=== PATIENT | female | born 1955 | race Caucasian/White ===

== ENCOUNTER 2016-08-02 07:14 | Day surgery (SDC) | payer OTHER ==
[2016-08-02] VITALS (11 sets, daily range): BP systolic 114–132; BP diastolic 64–75; PULSE 67–88; RESP 8–17; O2SAT 91–97
[~2016-08-02] VITALS: Ht 160 cm; Wt 85.0 kg
[~2016-08-02 07:14] MED LIST: BACL20TA PO; ESTR0.5T PO; FLUO40CA PO; HYDR-656 PO; LORA10CA PO; LURA20TA PO; MONT10TA20 PO; MTH10T PO; OLAN5TAB PO; OMEP20CA11 PO; OXYC5TAB72 PO; SENN8.6C6 PO; SUDAFED PO; SUMA50TA2 PO; cascara sagrada ORAL; tylenol PO
[2016-08-02] MEDS ORDERED: fentaNYL-PF 50 mCg/mL 2 mL Inj ONE (07:15)
[2016-08-02] MEDS ORDERED: Dexamethasone 4 mg/mL Inj ONE (07:15)
[2016-08-02] MEDS ORDERED: Propofol 10,000 mCg/mL 20 mL Inj ONE (07:15)
[2016-08-02] MEDS ORDERED: Ondansetron 2 mg/mL 2 mL Inj ONE (07:15)
[2016-08-02] MEDS ORDERED: CeFAZolin Inj 2 GM in IV Premix 1 EACH IV ONE (07:25)
[2016-08-02] MEDS ORDERED: Lidocaine 2%-Epi 1:100,000 20 mL Inj INJ ONE (07:50)
[2016-08-02] MEDS: Lactated Ringer's 1,000 ML IV SCH ×3 (07:51→12:33)
[2016-08-02] MEDS ORDERED: Clindamycin 600 mg/50 mL D5W Premix IV ONE (07:55)
[2016-08-02] MEDS ORDERED: Clindamycin Inj 600 MG in IV Premix 1 EACH IV ONE (08:00)
[2016-08-02] MEDS ORDERED: Bupivacaine 0.5%/EPI 50 mL Inj INFILTRATE ONE (08:15)
[2016-08-02] MEDS ORDERED: GABA600T2 PO (08:17)
[2016-08-02] MEDS ORDERED: ALBU18HF INH (08:17)
[2016-08-02] MEDS ORDERED: FEG324 PO (08:17)
[2016-08-02] MEDS ORDERED: SENEXON PO (08:17)
[2016-08-02] MEDS ORDERED: KETO120S TOP (08:17)
[2016-08-02] MEDS ORDERED: LAMO100T2 PO (08:17)
[2016-08-02] MEDS ORDERED: IBUP800T28 PO (08:17)
[2016-08-02] MEDS ORDERED: GABA-502 PO (08:17)
[2016-08-02] MEDS ORDERED: CLON0.1T PO ×2 (08:17)
[2016-08-02] MEDS ORDERED: MTH10T PO (08:17)
[2016-08-02] MEDS ORDERED: LORA-302 PO (08:17)
[2016-08-02] MEDS ORDERED: FLUT9.9S INH (08:17)
[2016-08-02] MEDS ORDERED: Lactated Ringer's 1,000 ML IV SCH (10:53)
[2016-08-02] MEDS ORDERED: Lactated Ringer's 500 ML IV PRN (10:53)
[2016-08-02] MEDS ORDERED: Phenylephrine 10,000 mCg/mL Inj IVPUSH PRN (10:55)
[2016-08-02] MEDS ORDERED: EPHEDrine Sulfate 50 mg/mL Inj IVPUSH PRN (10:55)
[2016-08-02] MEDS ORDERED: MetoCLOpramide 5 mg/mL 2 mL Inj IVPUSH PRN (10:55)
[2016-08-02] MEDS ORDERED: Ondansetron 2 mg/mL 2 mL Inj IVPUSH PRN (10:55)
[2016-08-02] MEDS ORDERED: Dexamethasone 4 mg/mL Inj IVPUSH PRN (10:55)
--- NOTE | 2016-08-02 10:55 | PCM.HPANE ---
Patient Data Surgeon Admitting Provider: Attending Provider:Thomas Hui DPM Primary Care Physician:Cluadio Pedersen MD Other Provider:Sushma Parkeringham Anesthesia Reason for Visit Left Foot Deformities, Hammer Toes Ht/WT & BMI Height (Feet): 5 Height (Inches): 3 Weight (Kilograms): 85 Body Mass Index 33.00 Allergies Coded Allergies: Penicillins (Verified Allergy, Severe, ANAPHYLAXIS, ITCH, 07/29/16) cefuroxime (Verified Allergy, Severe, rash, 08/02/16) morphine (Verified Allergy, Severe, ANAPHYLAXIS, ITCH, BODY RASH, 07/29/16) sulfamethoxazole (Verified Adverse Reaction, Severe, ITCH, 07/29/16) trimethoprim (Verified Adverse Reaction, Severe, ITCH, 07/29/16) Past Anesthesia History Anesthesia History: Denies:: Abnormal Airway, Anesthesia Reactions, Difficult Intubation, Fam Anesthesia Reaction, Malignant Hyperthermia Diabetes History Hx Diabetes?: No MRSA MRSA: No Medications Home Meds Incl Beta Trina: No Reported Medications Methadone 10 Mg Tab10 Mg PO HS Ref 0 08/02/16 Lorazepam (Ativan)0.5 Mg Tablet0.5 Mg PO TID PRN For Anxiety #30 08/02/16 Clonidine 0.1 Mg Tablet2 Tablet PO HS Ref 0 08/02/16 Clonidine 0.1 Mg Tablet0.1 Mg PO BID #90 08/02/16 Gabapentin 300 Mg Hvvgxom886 Mg PO am Ref 0 08/02/16 Gabapentin 600 Mg Tablet1,200 Mg PO HS #60 08/02/16 Albuterol Sulfate (Ventolin HFA Inhaler)200 Puff/18 Gm Inhaler2 Puffs INH prn PRN For Shortness of Breath #18 08/02/16 [senexon] No Conflict Check17.2 Mg PO BID 08/02/16 Ketoconazole (Nizoral)120 Ml Njatuxn005 Ml TOP 2x week 08/02/16 Lamotrigine 100 Mg Vlxjux029 Mg PO DAILY #30 08/02/16 Ibuprofen 800 Mg Kanuln455 Mg PO TID #60 08/02/16 Fluticasone Propionate (Flonase Allergy Relief)50 Mcg/Actuation [place].susp1 [place] INH BID #16 08/02/16 Ferrous Gluconate 324 Mg Nxg463 Mg PO BID Ref 0 08/02/16 [tylenol] No Conflict Jiewy340 Mg PO QID PRN For Pain 12/28/14 Montelukast (Singulair)10 Mg Mogrmz91 Mg PO HS PRN For Shortness of Breath Ref 0 12/28/14 Sumatriptan Succinate 50 Mg Pvrxrd91-531 Mg PO PRN migraine not to exceed 4 tab/24 hours 12/28/14 Olanzapine 5 Mg Yssiat69 Mg PO DAILY Ref 0 12/28/14 Loratadine (Claritin)10 Mg Tzvqtzm73 Mg PO DAILY 30 Days Ref 0 12/28/14 Estradiol 0.5 Mg Tablet0.25 Mg PO DAILY 12/28/14 oxyCODONE 5 Mg Tablet5-10 Mg PO Q6 PRN For Pain Ref 0 12/28/14 Baclofen 20 Mg Aurodf83 Mg PO Q6 PRN For Pain 30 Days Ref 0 12/28/14 hydrOXYzine Hcl (HydrOXYzine Hcl)25 Mg Sgbpkj39 Mg PO BID PRN For Anxiety 12/28/14 Omeprazole 20 Mg Capsule.dr40 Mg PO BID Ref 0 12/28/14 Methadone 10 Mg Tab5 Mg PO am Ref 0 12/28/14 [sudafed 12 hour] No Conflict Tiryy403 Mg PO PRN allergies 12/28/14 [cascara sagtreva] No Conflict Vhkov384 Mg ORAL HS PRN For Constipation 12/28/14 Discontinued Reported Medications Lurasidone (Latuda)20 Mg Bajczu73 Mg PO DAILY 12/28/14 Fluoxetine 40 Mg Zyenbpi93 Mg PO DAILY Ref 0 12/28/14 Sennosides (Senna)8.6 Mg Capsule8.6 Mg PO BID PRN For Constipation 12/28/14 History History of ENT Problems?: Yes HEENT History: Positive for:: Sinus Problem (SEASONAL ALLERGIES) Denies:: Abnormal Airway Cataracts Difficult Intubation Dysphagia Hearing Problem TMJ Other HEENT Pertinent History: S/P TONSILLECTOMY Hx of Heart Problems?: Yes Cardiovascular History: Positive for:: Irregular Heartbeat (with aniety) Denies:: Atrial Fibrillation Cardiac Surgery Chest Pain Congestive Heart Failure Edema Heart Murmur Hypertension (hyperlipidemia) Pacemaker Rheumatic Fever Hx of Respiratory Problem?: Yes Respiratory History: Positive for:: Pneumonia (once, remote hx) Denies:: Asthma COPD Emphysema Oxygen Administration Pulmonary Embolism Tuberculosis Use of C-PAP Machine (SNORES) Hx Neurologic Problems?: Yes Neurological History: Positive for:: Headaches (NONE RECENTLY) Denies:: Alzheimer's Disease CVA Dementia Dizziness Multiple Sclerosis Parkinson's Disease Seizures Hx of GI Problems?: Yes Gastrointestinal History: Positive for:: Gastroesphageal Reflux Heartburn Denies:: Cirrhosis Diverticulitis Gastrointestinal Bleeding Hepatitis Hiatal Hernia Rectal Bleeding Hx of Problems?: No Genitourinary History: Denies:: Kidney Stones Female Hx: Denies:: Currently Problems with Breasts? Skin History: Denies:: History Skin Disorders? Pressure Ulcers Hx Musculoskeletal Problems?: Yes Musculoskeletal History: Positive for:: Degenerative Joint Fibromyalgia Musculoskeletal Trauma (S/P LT SHOULDER RPR,LT BUNIONECTOMY,RT HAND RPR,LT FEMUR RPR,EXC LT FOOT NE) Osteoarthritis Denies:: Joint Replacement Systemic Lupus Hx of Psycho/Social Problems?: Yes Psycho Social History: Positive for:: Anxiety Bipolar Disorder Hx Depression Hx Surgeries?: Yes (hyster, shatter lft shoulder, tonsils, lft foot bunion, rt hand, left femur) Hx Any Other Health Problems?: Yes Other History: Positive for:: Hospitalization Denies:: Cancer Endocrine Disease Thyroid Disease History Blood Transfusions: Denies:: Blood Transfusions Hx Diabetes: No Hx Alcohol Use: NoHx Substance Use: No Smoking Status: Never Smoker Have You Smoked inLast 12 mo: No Stop/Bang S-Snoring: Do You Snore Loudly: Yes T-Tired: feel tired, fatigued: Yes O-Obsered: Observed not breath: No P-Blood Pressure: treated: No B- Body Mass Index > 35 kg/m2: No A- Age over 50: Yes N- Neck Large Circumference: No G- Gender Male: No BRIDGER Total Score: 3 Risk Assessment Category Category 1A: Patient has history of documented sleep apnea, and HAS NOT received any narcotic, sedative or anesthesia administration during this stay. Category 1B: Patient has history of documented sleep apnea, and HAS received any narcotic , sedative or anesthesia administration during this stay Category 2: Patient has SUSPECTED Obstructive Sleep Apnea, and HAS received any narcotic , sedative or anesthesia administration during this stay. Category 3: Patient has SUSPECTED Obstructive Sleep Apnea and HAS NOT received narcotic, sedative or anesthesia administration during this stay. Category 4: Outpatient in Procedural Areas with known sleep apnea or who screen positive for High Risk via the STOP/BANG questionnaire. Exam Exam Vital Signs Vital Signs Date Time Temp Pulse Resp B/P Pulse Ox O2 Delivery O2 Flow Rate FiO2 08/02/16 08:19 36.0 67 17 118/71 95 Room Air General Appearance: Alert, Oriented X3, Cooperative HEENT/AIRWAY: MP 2 Lungs: Normal Air Movement Heart: Exam Unremarkable Meds/Labs/Diagnostics Admission Meds Current Medications Lactated Ringer's (Lr) 1,000 ml @ 120 mls/hr Q8H20M IV Last administered on t 07:51; Start 08/02/16 at 05:00; Stop 08/02/16 at 13:19 Plan Impression Patient chart reviewed, patient interviewed and anesthestic plan with risks, benefits, and alternatives discussed, and informed consent obtained. NPO Status: 2100 08/01/16 ASA Physical Status: ASA2 Mod Systemic Disease Anesthetic Plan: GA Bene/Risks/Altern/Consents: Yes HP Complete Prior to Induction: Yes Fabián Neal MD Aug 02, 2016 10:55
[2016-08-02] MEDS ORDERED: Ketorolac 15 mg/mL Inj ONE (12:52)
[2016-08-02] MEDS: fentaNYL-PF 50 mCg/mL 2 mL Inj IVPUSH PRN ×3 (13:14→13:25)
[2016-08-02] MEDS ORDERED: Lactated Ringer's 1,000 ML IV ONE (13:34)
[2016-08-02] MEDS ORDERED: oxyCODONE-Acetamin 10-325 mg Tablet PO ONE (14:26)
--- NOTE | 2016-08-02 15:38 | PCM.ANEP1 ---
Post Anesthesia Phase 1 PACU Phase 1 Assessment Vital Signs Vital Signs Date Time Temp Pulse Resp B/P Pulse Ox O2 Delivery O2 Flow Rate FiO2 08/02/16 14:34 36.5 87 14 122/71 97 Room Air 08/02/16 13:40 36.9 80 14 118/72 93 Room Air 08/02/16 13:35 78 12 118/64 93 Nasal Cannula 2 08/02/16 13:30 36.3 79 15 120/64 95 Nasal Cannula 2 08/02/16 13:15 80 15 114/68 95 Nasal Cannula 2 08/02/16 13:05 81 13 123/71 94 Nasal Cannula 2 08/02/16 13:00 84 14 124/75 94 Nasal Cannula 2 08/02/16 12:55 88 17 93 Nasal Cannula 2 08/02/16 12:50 87 8 124/75 92 Nasal Cannula 2 08/02/16 12:47 37.7 87 10 132/67 91 Room Air 08/02/16 08:19 36.0 67 17 118/71 95 Room Air Anesthetic Administered: GA Level of Alertness: Awake, talking TRAN's with Equal Strength: Yes Pain: Yes Nausea or Vomiting: No Oxygen Delivery: Room Air Lungs: Normal Air Movement Dermatome Level: Full Sensation Fabián Neal MD Aug 02, 2016 15:38
--- NOTE | 2016-08-02 15:38 | PCM.ANEP2 ---
Post Anesthesia Evaluation ASA/CMS Post Anesthesia VS in Patient's Normal Range?: Yes Resp Stable; Airway Patent?: Yes CV Function & Hydration Stable: Yes Mental Status Recovered?: Yes Pain control Satisfactory?: Yes N/V Control Satisfactory?: Yes Fabián Neal MD Aug 02, 2016 15:38
--- NOTE | 2016-08-03 06:50 | OP ---
[address] [address] OPERATIVE REPORT PATIENT: KISHOR RIVERA : 1955 MR#: [id number] ADMIT: 08/02/2016 JOB ID: [id number] DATE OF SURGERY: 08/02/2016 SURGEON: Thomas Hui DPM. PREOPERATIVE DIAGNOSIS(ES): 1. Metatarsal deformity left third metatarsal. 2. Flexor contracture, left fourth toe. 3. Extensor contracture left second toe. POSTOPERATIVE DIAGNOSIS(ES): ANESTHESIA: General with local block. HEMOSTASIS: None. ESTIMATED BLOOD LOSS: Less than 10 cc. COMPLICATIONS: None. PROCEDURE AND FINDINGS: The patient was brought to the operating room and placed on the table in a supine position. She was placed under general anesthesia. Afterwards, I performed an incisional block to the left foot. The left foot was prepped and draped in normal sterile surgical manner. Attention was directed to the dorsal of the left 3rd metatarsal confirmed on live fluoroscopy. Incision was carried down to bone using sharp and blunt dissection, carefully cauterizing and/or ligating any bleeders that were encountered. I then secured access to the metatarsal shaft, cleared it of periosteum using periosteal elevator. A small sagittal saw was utilized to perform osteotomy within the transverse plane from anterior to posterior. This immediately produced retraction and elevation of the bone to a better anatomic position as the deformity was under considerable tension. The dorsal aspect of the proximal fragment was then smoothed for good apposition of the plate. I then temporarily secured a four hole titanium plate with [place] wire and re-evaluated on live fluoroscopy. I then placed two locking screws near the proximal section and then through the central oval hole I was able to place another titanium bone screw to further secure the head of the metatarsal and the last locking bone screw into the distal head. Live fluoroscopy examination again reveals good anatomic position and nondenominational in all planes. I then closed the deep structures using 3-0 Vicryl followed by an open Z-plasty tenotomy of the extensor tendons third toe. The Z-plasty was secured with 4-0 Vicryl and then skin was closed with a running subcutaneous buried knot. Attention was then directed to the dorsum of the second toe where previously hypertrophic incision was excised. The incision was then carried down to the extensor tendon which was found to be very tight and adhered to localized tissue. This was problematic from a previous surgical intervention. Open Z-plasty was performed upon the tendon in a similar fashion to the previous tendon. I then secured this also with 3-0 Vicryl, followed by 3-0 Vicryl retention sutures and then a running subcutaneous 4-0 Vicryl closure with external knot. Attention was then directed to the fourth toe which was found in a flexed contracted position where the long flexor tendon was readily palpable beneath the skin. A #15 scalpel was introduced through skin lines in the sagittal plane and then used to release enough fibers to produce stretching of the tendon with the toes secured in the rectus position. Afterwards, I used a single subcu 4-0 Vicryl for closure. All incisions were then further stabilized with Steri-Strips over tincture of benzoin. I placed saline moistened Stewart silk, saline soaked gauze, 4x4s, followed by gauze roll, Kerlix and SHY bandage. The patient had immediate CFT to all digits throughout the procedure as no tourniquet was applied. I performed a durable bupivacaine block with epinephrine. The remainder of the dressings included a Kerlix roll, a tubular stockinette and SHY bandage. The patient is placed into orthopedic shoe and transferred from the operating room in stable condition, having tolerated the procedure and anesthetic well. POSTOPERATIVE PLAN: The patient may bear weight upon the foot, but I encourage her to ambulate minimally. Her daughter was there at visits to discuss this as well. Remind her that she has in the past experienced complications due to premature weightbearing. She has had unfortunate tendency to place the needs of her dog to walk over to own physical and medical needs. We discussed this also in detail. The patient is provided with prescriptions for breakthrough pain and prophylactic antibiotic. She will follow with me in my regular office next week. She is to keep the dressings clean, dry and intact until that time. I will follow her with phone interview over the weekend. DEB
== END 2016-08-02 23:59 | disposition home or self-care (01) ==
LOC: SAS 07:14
PROVIDERS: ATTEND Podiatrist
DX: M21.6X2 Other acquired deformities of left foot (principal); M20.42 Other hammer toe(s) (acquired), left foot; E78.5 Hyperlipidemia, unspecified; G89.4 Chronic pain syndrome; J45.909 Unspecified asthma, uncomplicated; F32.9 Major depressive disorder, single episode, unspecified; G25.0 Essential tremor; D64.9 Anemia, unspecified; E66.9 Obesity, unspecified; Z79.51 Long term (current) use of inhaled steroids
CPT/HCPCS: 28232; 28234; 28308; 76000; C1713; J1100; J1885; J2175; J2250; J2405; J3010; J7120